=== PATIENT | female | born 1940 | race Caucasian/White ===

== ENCOUNTER 2020-02-10 17:23 | Emergency (ER) | payer OTHER ==
[~2020-02-10] VITALS: Ht 167.6 cm; Wt 65.8 kg
[2020-02-10 17:59] VITALS: BP 235/106
--- NOTE | 2020-02-10 18:09 | NUR ---
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
--- NOTE | 2020-02-10 18:23 | Emergency Department Note ---
History of Present Illnes History of Present Illness Chief Complaint: Eye, Ear, Nose, Throat, Dental History of Present Illness This is a 79 year old female sent over from oral surgeon s/p teeth removal of all upper jaw surgery told she has trigemenal neuralgia c/o pain to left side c/o electrical type feeling . Historian: Patient Onset (how long ago): hour(s) (6) Location: RIGHT FACE Quality: ELECTRIC TYPE PAIN Radiation: Reports non-radiation Severity: severe Onset quality: sudden Duration (how long): hour(s) (6) Timing of current episode: constant Progression: waxing and waning Chronicity: new Context: Reports recent surgery (ORAL SURGERY); Denies recent illness Relieving factors: none Exacerbating factors: none Associated symptoms: Reports denies other symptoms Past Medical/Family History Physician Review I have reviewed the patient's past medical and family history. Any updates have been documented here. Past Medical History Recent Fever: No Clinical Suspicion of Infectio: No New/Unexplained Change in Ment: No Past Medical History: Hypertension Past Surgical History: Appendectomy, Hip Replacement, Knee Replacement Other Surgery: oral sx femur Social History Smoking Cessation: Never Smoker Alcohol Use: None Any Illegal Drug Use: No Physically hurt or threatened: No Family History Family history of heart diseas: No Other family history HTN Review of Systems Review of Systems Constitutional: Reports no symptoms EENTM: Reports no symptoms Cardiovascular: Reports no symptoms Respiratory: Reports no symptoms Gastrointestinal: Reports no symptoms Genitourinary: Reports no symptoms Musculoskeletal: Reports no symptoms Integumentary: Reports no symptoms Neurological: Reports as per HPI Psychological: Reports no symptoms Endocrine: Reports no symptoms Hematological/Lymphatic: Reports no symptoms Physical Exam Related Data Allergies: Coded Allergies: No Known Allergies (Unverified , 02/10/20) Triage Vital Signs Vital Signs Date Time Temp Pulse Resp B/P (MAP) Pulse Ox O2 Delivery O2 Flow Rate FiO2 02/10/20 17:45 98.4 62 18 231/97 99 Room Air Vital signs reviewed: Yes Physical Exam CONSTITUTIONAL Constitutional: Present well-developed, Present well-nourished HENT HENT: Present normocephalic, Present atraumatic, Present oropharynx clear/moist, Present nose normal HENT L/R: Present left ext ear normal, Present right ext ear normal EYES Eyes: Reports PERRL, Reports conjunctivae normal NECK Neck: Present ROM normal PULMONARY Pulmonary: Present effort normal, Present breath sounds normal CARDIOVASCULAR Cardiovascular: Present regular rhythm, Present heart sounds normal, Present capillary refill normal, Present normal rate GASTROINTESTINAL Abdominal: Present soft, Present nontender, Present bowel sounds normal GENITOURINARY Genitourinary: Present exam deferred SKIN Skin: Present warm, Present dry MUSCULOSKELETAL Musculoskeletal: Present ROM normal NEUROLOGICAL Neurological: Present alert, Present oriented x 3, Present no gross motor or sensory deficits PSYCHOLOGICAL Psychological: Present mood/affect normal, Present judgement normal Assessment & Plan Medical Decision Making MDM PT WITH TRIGEMINAL NEURALGIA PT HAS BLOOD PRESSURE 235/106, I EXPLAINED TO PT WE NEED TO TREAT HER BLOOD PRESSURE SHE COULD HAVE A STROKE WITH IT BEING THAT HIGH, PT STATES SHE JUST WANTS PAIN MEDICATION FOR HER FACE AND WANTS TO GO HOME, PT CARMELLA SANDEE, DISCHARGED TOLD WELCOME TO RETURN IF SHE CHANGES HER MIND OR HAS ANY NEW SYMPTOMS. PT DISCHARGED WITH TRAMADOL 50 MG PO Q 6 HOURS PRN PAIN #20 Assessment & Plan Final Impression: (1) Hypertensive urgency (2) Trigeminal neuralgia of right side of face Depart Disposition: HOME, SELF-CARE Last Vital Signs Date Time Temp Pulse Resp B/P (MAP) Pulse Ox O2 Delivery O2 Flow Rate FiO2 02/10/20 17:59 66 18 98 02/10/20 17:45 98.4 231/97 Room Air PACHECO NORIEGA MD Feb 10, 2020 18:23
== END 2020-02-10 18:14 | disposition home or self-care (01) ==
LOC: ER 17:50
DX: I16.0 Hypertensive urgency (principal); G50.0 Trigeminal neuralgia
CPT/HCPCS: 99282